=== PATIENT | female | born 1965 | race Caucasian/White ===

== ENCOUNTER 2017-01-13 06:42 | Day surgery (SDC) | payer BC ==
[~2017-01-13] VITALS: Ht 165.1 cm; Wt 76.6 kg
[~2017-01-13 06:42] MED LIST: BENA10TA3 PO; LEVO150T69 PO; LIDOCAINE 1% (10mg/ml) 2ml SDV INJ ONE; LR 1,000 ML IV SCH
[2017-01-13 07:05] VITALS: BP 141/76; PULSE 81; RESP 20; TEMP 98.2; O2SAT 98; Ht 165.1 cm; Wt 76.6 kg
[2017-01-13] MEDS ORDERED: PROPOFOL 500mg 50 ML IV ONE (07:49)
[2017-01-13 08:39] VITALS: BP 113/60; PULSE 75; RESP 14; TEMP 98.2; O2SAT 98
--- NOTE | 2017-01-13 08:45 | ANESPREOP ---
Anesthesia Record Date and Time DATE: 01/13/17 TIME: 08:08 Proposed Surgical Procedure COLONOSCOPY Allergies: Coded Allergies: NKDA (Verified Allergy, Unknown, 12/14/09) Ht/Wt/BMI Height: 5 ' 5.00 " Weight: 76.600 kg BMI: 28.1 kg/m2 Vital Signs Date Time Temp Pulse Resp B/P Pulse Ox O2 Delivery O2 Flow Rate FiO2 01/13/17 07:05 98.2 81 20 141/76 98 Room Air Medications Inpatient Medications Current Medications Medications (Trade) Dose Ordered Sig/Sarbjit Start Time Stop Time Status Last Admin Dose Admin Lactated Ringer's (Lactated Ringers) 1,000 ml @ 50 mls/hr Q20H 01/13/17 06:00 01/13/17 07:16 50 MLS/HR Benazepril HCl (Benazepril HCl) 10 Mg Tablet, 1 TAB PO DAILY, (Reported) Last Taken: on 01/12/17 Levothyroxine Sodium (Levothyroxine Sodium) 150 Mcg Tablet, 150 MCG PO DAILY, (Reported) Last Taken: on 01/12/17 Currently on Beta Philomena: No Medical/Surgical History Anesthesia PMH: Reports: *Hypertension, Headaches, Thyroid Disease (HYPO ), Denies: *Angina, *Diabetes, *Dyspnea, *WA, Anesthesia Reactions (NO AIRWAY ISSUES), Arthritis, Asthma, CHF, COPD, CVA/Stroke/TIA, Cancer, Clotting Problems , Deep Vein Thrombosis, Glaucoma, Hepatitis, Hiatal Hernia, Malignant Hyperthermia, Pneumonia, Reflux, Renal Disease, Rheumatic Fever, Seizures, Sleep Apnea, Tuberculosis Smoking Status: Never smoker Use Chewing Tobacco?: No Substance Use Type: does not use Alcohol Intake: none HX of Last Menstrual Period: DECEMBER 2016 Past Surgical History Orthopedic Surgeries: No Abdominal Surgeries: Genitourinary Surgeries: Cardiac Surgeries: Endocrine Surgeries: Reproductive Surgeries: Neurological Surgeries: Ear Surgeries: Nose Surgeries: Throat Surgeries: Other Surgeries: Yes - COLONOSCOPY X3 Anesthesia Adverse Reactions: FOUND none Family Hx of Anesthesia Advers: none Hx of Motion Sickness: No Pertinent Findings Test 01/13/17 06:50 Urine Test Negative (NEGATIVE) Physical Exam Respiratory: Lungs clear Cardiovascular: FOUND Regular rate, rhythm Airway Assessment Mallampati Score: II TMD: 3 Fingerbreadths Neck Extension: Good Overall Assessment: No Airway Concerns ASA: 2 Plan Anesthesia Plan: TIVA Discussion Discussed risks/options/alternatives of anesthesia and questions answered. Patient consents. Nursing pain assessment noted. Attestation Statement Prior to the delivery of any anesthetic medication, I examined the patient, developed the plan, obtained the patient's consent and discussed the risk and benefits of the procedure with the patient/guardian. SHITAL BOYD CRNA January 13, 2017 08:45
[2017-01-13 08:55] VITALS: BP 137/78; PULSE 61; RESP 17; O2SAT 100
--- NOTE | 2017-01-13 08:57 | OPNOTEF ---
DATE OF OPERATION 01/13/2017 PREOPERATIVE DIAGNOSIS History of tubulovillous adenoma. POSTOPERATIVE DIAGNOSIS Within normal limits, with a few small diverticula noted. OPERATION Colonoscopy, no biopsies taken. SURGEON Gerard Lin M.D. DESCRIPTION OF OPERATIVE PROCEDURE The patient was prepped with Colyte the evening prior to the procedure. She was placed in the left lateral position. After a benign digital rectal exam, the colonoscope was inserted and advanced to the cecum with cecal landmarks identified. The cecum, ascending colon, transverse colon and sigmoid showed no evidence of hemorrhage, mass lesions, ulcerations, polyps or significant inflammatory changes. A few small diverticula were noted. The rectum and anus were clear. The colon was suctioned. The scope removed with patient tolerating the procedure well. Follow up colonoscopy recommended in five years or sooner as clinically indicated. GABRIEL
--- NOTE | 2017-01-13 08:59 | ANESPO ---
Post-Op Note Date 01/13/17 Time: 08:58 Status Pt Participated in Evaluation: Pt participated in person Vital Signs Date Time Temp Pulse Resp B/P Pulse Ox O2 Delivery O2 Flow Rate FiO2 01/13/17 08:39 98.2 75 14 113/60 98 Room Air Respiratory Function: Airway patent, Regular respirations Cardiovascular Function: Regular pulse Mental Status: Alert/oriented Pain Level Intensity: 0 Hydration: Taking po fluids Complications during Recovery None apparent Follow-Up Instructions Instructions Per Surgeon ARIAN AMAYA CRNA January 13, 2017 08:59
[2017-01-13 09:15] VITALS: BP 143/80; PULSE 68; RESP 16; O2SAT 100
== END 2017-01-13 09:29 | disposition home or self-care (01) ==
LOC: NSC 06:42
DX: Z12.11 Encounter for screening for malignant neoplasm of colon (principal); K57.30 Diverticulosis of large intestine without perforation or abscess without bleeding; Z86.010 Personal history of colon polyps
CPT/HCPCS: 45378; 81025; J2704; J7120